=== PATIENT | female | born 1970 | race Caucasian/White ===

== ENCOUNTER 2020-01-24 22:19 | Inpatient (IN) | payer OTHER ==
[~2020-01-24] VITALS: Ht 154.9 cm; Wt 61.2 kg
[2020-01-31] MEDS ORDERED: VANCOMYCIN HCL125 MG PO (12:44)
[2020-01-31] MEDS ORDERED: INTESTINEX680 M1 PO (12:45)
[2020-01-31] MEDS ORDERED: INTEGRA PLUS C1 EACH PO (12:48)
== END 2020-01-31 15:22 | disposition home or self-care (01) | DRG 390 ==
LOC: ER 22:19 → SEC-K 01-25 10:16 → SURG 01-25 13:13 → SURH 01-29 13:25
PROVIDERS: ADMIT Internal Medicine; ATTEND Internal Medicine
PROC: 4A12X4Z Monitoring of Cardiac Electrical Activity, External Approach (ICD-10-PCS; principal; 2020-01-25)
PROC: BW21ZZZ Computerized Tomography (CT Scan) of Abdomen and Pelvis (ICD-10-PCS; 2020-01-25)
PROC: BW21Y0Z Computerized Tomography (CT Scan) of Abdomen and Pelvis using Other Contrast, Unenhanced and Enhanced (ICD-10-PCS; 2020-01-27)
DX: K56.1 Intussusception (principal); K52.89 Other specified noninfective gastroenteritis and colitis; K56.690 Other partial intestinal obstruction; Z20.828 Contact with and (suspected) exposure to other viral communicable diseases

== ENCOUNTER 2020-04-23 11:00 | Inpatient (IN) | payer OTHER ==
[~2020-04-23] VITALS: Ht 154.9 cm; Wt 60.3 kg
[~2020-04-23 11:00] MED LIST: INTEGRA PLUS C1 EACH PO; INTESTINEX680 M1 PO; VANCOMYCIN HCL125 MG PO
[2020-04-23] MEDS ORDERED: ZYRTEC10 M3 PO (14:56)
[2020-04-23] MEDS ORDERED: SYMBICORT 16010.2 GM IH (14:56)
[2020-05-03] MEDS ORDERED: INTESTINEX680 M1 PO (12:29)
[2020-05-03] MEDS ORDERED: OMEPRAZOLE20 M1 PO (12:29)
[2020-05-03] MEDS ORDERED: BUDESONIDE EC3 MG PO (12:29)
== END 2020-05-03 13:36 | disposition home or self-care (01) | DRG 337 ==
LOC: O/R 04-30 06:20 → SURG 04-30 06:20 → SURH 04-30 11:00 → SURG 04-30 14:43 → SURH 04-30 16:45 → SURG 05-03 13:36
PROVIDERS: ADMIT Surgery; ATTEND Surgery
PROC: 0DN84ZZ Release Small Intestine, Percutaneous Endoscopic Approach (ICD-10-PCS; principal; 2020-04-30 16:45)
PROC: 0DBK8ZX Excision of Ascending Colon, Via Natural or Artificial Opening Endoscopic, Diagnostic (ICD-10-PCS; 2020-05-02)
PROC: 0DBB8ZX Excision of Ileum, Via Natural or Artificial Opening Endoscopic, Diagnostic (ICD-10-PCS; 2020-05-02)
PROC: 0DBC8ZX Excision of Ileocecal Valve, Via Natural or Artificial Opening Endoscopic, Diagnostic (ICD-10-PCS; 2020-05-02)
PROC: 0DBM8ZX Excision of Descending Colon, Via Natural or Artificial Opening Endoscopic, Diagnostic (ICD-10-PCS; 2020-05-02)
PROC: 4A033R1 Measurement of Arterial Saturation, Peripheral, Percutaneous Approach (ICD-10-PCS; 2020-05-02)
DX: K56.1 Intussusception (principal); K56.51 Intestinal adhesions [bands], with partial obstruction

== ENCOUNTER 2023-05-30 16:48 | Emergency (ER) | payer OTHER ==
[~2023-05-30] VITALS: Ht 167.6 cm; Wt 64.4 kg
[~2023-05-30 16:48] MED LIST changes: +BUDESONIDE EC3 MG PO; +HUMIRA40 MG/0.2 SQ; +OMEPRAZOLE20 M1 PO; +PERCOCET 5-3251 EACH PO; +PROGESTE PO; +PROGESTERONE100 M1; +SYMBICORT 16010.2 GM IH; +VITAMIN D310 MCG/1 M PO; +ZYRTEC10 M3 PO
[2023-05-30 20:00] LABS: HEMATOCRIT 42.1 % (36.0-45.00); HEMOGLOBIN 14.3 g/dL (12.0-15.00); MEAN CELL VOLUME 89.3 fL (80.00-100.00); MEAN CORPUSCULAR HEMOGLOBIN 30.3 pg (27.00-32.0); MEAN CORPUSCULAR HGB CONC 33.9 g/dl (32.0-36.0); PLATELET COUNT 196 K/uL (150-450); RED BLOOD COUNT 4.71 M/uL (4.00-6.00); RED CELL DISTRIBUTION WIDTH 15.7 % (11.5-14.5)
[2023-05-30 20:24] LABS: ALBUMIN 4.3 gm/dL (3.4-5.0); BILIRUBIN TOTAL 0.95 mg/dL (0.3-1.2); CALCIUM 9.2 mg/dL (8.5-10.1); CREATININE SERUM 0.95 mg/dL (0.55-1.02); GFR 61.53; GLOBULINA 3.9 G/DL (2.4-3.5); POTASSIUM 4.25 mEq/L (3.5-5.1); TOTAL PROTEIN 8.2 gm/dL (6.4-8.2)
== END 2023-05-30 21:35 | disposition home or self-care (01) ==
LOC: ER 16:48
PROVIDERS: General Practice
DX: A08.39 Other viral enteritis (principal)